=== PATIENT | female | born 1955 | race Caucasian/White ===

== ENCOUNTER 2016-10-18 15:39 | Emergency (ER) | payer OTHER ==
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
[2016-10-18 15:50] LABS: % IMMATURE GRANULYOCYTES 0.5 % (0.0-1.1); ABSOLUTE IMMATURE GRANULOCYTES 0.06 10^3/uL (0.00-0.10); ADD DIFF? NO; ADD MORPH? NO; ADD SCAN? NO; ATYPICAL LYMPHOCYTE FLAG 20 (0-99); FRAGMENT RBC FLAG 0 (0-99); HEMOGLOBIN 14.1 g/dL (12.6-16.3); LEFT SHIFT FLG 0 (0-99); LIPEMIA HEMOLYSIS FLAG 90 (0-99); MEAN CELL HEMOGLOBIN 31.1 pg (27.9-34.1); MEAN CELL HEMOGLOBIN CONCENTR. 34.4 g/dL (32.4-36.7); MEAN CELL VOLUME 90.5 fL (81.5-99.8); MEAN PLATELET VOLUME 10.2 fL (8.7-11.7); PLATELET CLUMPS FLAG 20 (0-99); PLATELET COUNT 211 10^3/uL (150-400); RED BLOOD CELL COUNT 4.53 10^6/uL (4.18-5.33); RED CELL DISTRIBUTION WIDTH 13.1 % (11.5-15.2)
[2016-10-18] MEDS ORDERED: IOPAMIDOL (ISOVUE-300) 100 ML BTL ONE (15:53)
[2016-10-18] MEDS ORDERED: HYDROmorphONE/DILAUDID 1 MG/ML SYR IVP ONE (15:59)
[2016-10-18] MEDS ORDERED: ONDANSETRON 4 MG/2 ML VIAL IVP ONE (16:00)
[2016-10-18 16:09] LABS: ANION GAP 14 mEq/L (8-16); CALCIUM 10.3 mg/dL (8.5-10.4); CARBON DIOXIDE 20 mEq/l (22-31); CHLORIDE 98 mEq/L (97-110); GLOMERULAR FILTRATION RATE 56; GLUCOSE 77 mg/dL (70-100); POTASSIUM 4.3 mEq/L (3.5-5.2); SODIUM 132 mEq/L (134-144)
[2016-10-18] MEDS ORDERED: HYDROCOD/APAP 5/325 PREPACK#6 BTL TAKEHOME ONE (17:54)
[2016-10-18 18:00] VITALS: BP 132/79; PULSE 64; RESP 18; TEMP 98.6; O2SAT 95
== END 2016-10-18 18:00 | disposition home or self-care (01) ==
LOC: EDUNIT#
DX: S22.22XA Fracture of body of sternum, initial encounter for closed fracture (principal); Z87.891 Personal history of nicotine dependence; V89.2XXA Person injured in unspecified motor-vehicle accident, traffic, initial encounter
CPT/HCPCS: 96374; J1170; J2405; Q9967

== ENCOUNTER 2017-12-23 | Observation (INO) | payer OTHER | END 2017-12-24 18:03 | disposition home or self-care (01) | PROVIDERS: ADMIT Internal Medicine ==